=== PATIENT | male | born 1985 | race Hispanic/Latino ===

== ENCOUNTER 2023-09-02 14:46 | Emergency (ER) | payer SELFPAY ==
[2023-09-02 14:48] VITALS: BP 177/120
--- NOTE | 2023-09-02 16:47 | ED.GENMED ---
History of Present Illness
General
Chief Complaint: Abdominal Symptoms
Source: patient
Exam Limitations: none
Time Seen by Provider: 09/02/23 15:59
Nursing documentation reviewed up to this point in time: agreed with
History of Present Illness
History of Present Illness:
Patient to ED wt complaint of nausea and vomiting. States he began to feel nauseous last night, began vomiting this AM. Denies fever/chills. Generalized abdominal discomfort. No diarrhea. Brought to ED by friend for eval
Past History
Past History
ED Past Medical History: None
ED Past Surgical History: None
Social History
Tobacco: Non-smoker
Alcohol: Occasional
Drug: None
Review of Systems
Review of Systems
Allergies reviewed?: Yes
All Other Systems: ROS reviewed and negative except as documented in HPI and ROS
Constitutional: Reports no symptoms
EENT: Reports no symptoms
Respiratory: Reports no symptoms
Cardiac: Reports no symptoms
ABD/GI: Reports abdominal pain, nausea and vomiting
: Reports no symptoms
Musculoskeletal: Reports no symptoms
Skin: Reports no symptoms
Neurological: Reports no symptoms
Phy Exam
General Physical Exam
General Presentation: well appearing and mild distress
General age: appears stated age
General Skin: warm and dry
General Habitus: normal
General Mental: alert
Cardiovascular Exam
Cardiovascular Exam: regular rate/rhythm and no edema
Pulmonary Exam
Pulmonary Exam: lungs clear and no respiratory distress
Gastrointestinal Exam
Gastrointestinal Exam: normal bowel sounds, soft, no organomegaly, non distended and no cva tenderness
Palpation: generalized: Mild tenderness
Neurological Exam
Neurological Exam: alert, oriented x3, CN II-XII intact, no motor deficits, no sensory deficits, speech normal and normal gait
Musculoskeletal Exam
Musculoskeletal Exam: full ROM
Skin Exam
Skin Exam: normal color, warm/dry and no rash
Psychiatric Exam
Psychiatric Exam: normal mood/affect
Course
Orders/Labs/Results
Orders:
Orders
09/02/23 14:51
EKG [Electrocardiogram (*1)] Urgent
Reason for Study: Chest Pain
09/02/23 14:52
EKG- Treatment ONCE
09/02/23 16:09
Ondansetron Injectable [Zofran] 4 mg IV NOW STA
09/02/23 16:10
CT Abd/pelvis W Iv Cont Urgent
Comment:
Reason For Exam: generalized pain, vomiting.
0.9% Sodium Chloride 1000 ml [Nss] 1,000 ml IV BOLUS
09/02/23 16:48
Complete Blood Count/With Diff Urgent
Comprehensive Metabolic Panel Urgent
Lipase Urgent
09/02/23 18:06
HYDROmorphone [Dilaudid] 0.5 mg IV NOW STA
Ondansetron Injectable [Zofran] 4 mg IV NOW STA
09/02/23 18:19
CR Cervical Spine 2 or 3 Vw Urgent
Reason For Exam: fall
Abnormal Lab Results
09/02/23
16:48
RBC 3.97 L 10^6/uL
(4.70-6.10)
Hct 36.1 L %
(39.0-52.0)
MCH 33.2 H pg
(27.0-31.0)
Absolute Lymphs (auto) 1.1 L 10^3/uL
(1.2-3.4)
Neutrophils % 76.0 H %
(42.2-75.2)
Lymphocytes % 15.3 L %
(20.5-51.1)
BUN 5 L mg/dl
(9-20)
Creatinine 0.5 L mg/dL
(0.7-1.3)
Glucose 126 H mg/dl
(70-99)
Total Bilirubin 1.4 H mg/dl
(0.2-1.3)
AST 121 H U/L
(17-59)
ALT 67 H U/L
(0-50)
09/02/23 16:48
09/02/23 16:48
Vital Signs
Initial and Last Documented VS:
Initial Vital Signs
Temp Pulse Resp BP Pulse Ox
98 F 89 16 177/120 98
09/02/23 14:48 09/02/23 14:48 09/02/23 14:48 09/02/23 14:48 09/02/23 14:48
Last Documented Vital Signs
Temp Pulse Resp BP Pulse Ox
98 F 89 16 162/93 94
09/02/23 14:48 09/02/23 14:48 09/02/23 14:48 09/02/23 17:00 09/02/23 18:30
*Radiology
Radiology exam reviewed: radiology read reviewed
*Pulse Oximetry
Patient hypoxic: no
*Critical Care Note
Total Time (30-74mins, 75-104mins- exclusive of procedures): Not Applicable
Update Note
Update Note:
Labs, CT reviewd with patient. No findings to explain his symptoms. No further n/v in dept. He will be discharged home, close followup with PCP. Given instructions on s/s to return to ED and he is agreeable to plan.
ED Attending Note
-
Portions of this chart may have been created with voice recognition software.� Occasional wrong word or��sound alike� substitutions may have occurred due to the inherent limitations of voice recognition software.
Discharge Plan
Departure
Patient Disposition: Home (Routine Discharge)
Date of Disposition: 09/02/23
Time of Disposition: 19:29
Patient with high blood pressure during this ER visit?: No
Condition: Good
Covid-19: Not Applicable
Discharge Problem:
Nausea & vomiting
Instructions: Nausea and Vomiting, Adult (DC), Abdominal Pain
Prescriptions:
New
ondansetron 4 mg tablet,disintegrating
4 mg PO Q8H PRN (Reason: nausea and vomiting) 3 Days Qty: 12 0RF
Referrals:
UNKNOWN - PT DOES,NOT KNOW [Family Provider] -
Activity Restrictions/Additional Instructions:
Follow up with your family doctor.
Interventions
Interventions:
*Risk Screen - Suicide Last Done: 09/02/23 14:48
*General Assessment Last Done: 09/02/23 14:48
*Neglect/Abuse Screening Last Done: 09/02/23 14:48
*ED COVID-19 Vaccine History Last Done: 09/02/23 18:20
*Nursing Disposition Last Done: 09/02/23 19:54
MM-Dnwchc-Fakarkzgcm Assessment Last Done: 09/02/23 16:59
Discharge Date and Time
Discharge Date/Time: 09/02/23 19:55
Print Language: WALLISIAN
[2023-09-02] MEDS: NSS 1000 IV (16:49)
[2023-09-02] MEDS: ZOFRAN 4 MG IV ×2 (16:49→18:11)
[2023-09-02 16:50] VITALS: BP 171/101
[2023-09-02 16:58] LABS: % Basophils 0.7 % (0-2); % Immature Granulocytes 0.4 % (0-0.5); % Lymphocytes 15.3 % (20.5-51.1); % Monocytes 7.6 % (1.7-9.3); Absolute Basophils 0.1 10^3/uL (0-0.2); Absolute Lymphocytes 1.1 10^3/uL (1.2-3.4); Absolute Monocytes 0.6 10^3/uL (0.1-0.6); Absolute Neutrophils 5.6 10^3/uL (1.4-6.5); Hematocrit 36.1 % (39.0-52.0); Hemoglobin 13.2 g/dL (13.0-18.0); Mean Corp Hgb Conc. 36.6 g/dL (33.0-37.0); Mean Corpuscular Hgb 33.2 pg (27.0-31.0); Mean Corpuscular Volume 90.9 fL (80.0-94.0); Mean Platelet Volume 9.9 fL (7.4-10.4); Nucleated Red Blood Cells % 0 % (-); Platelet Count 220 10^3/uL (130-400); Red Blood Cell Count 3.97 10^6/uL (4.70-6.10); Red Cell Dist. Width 13.5 % (11.5-14.5); White Blood Cell Count 7.4 10^3/uL (4.8-10.8)
[2023-09-02 17:00] VITALS: BP 162/93
[2023-09-02 17:11] LABS: ALT (SGPT) 67 U/L (0-50); AST (SGOT) 121 U/L (17-59); Alkaline Phosphatase 82 U/L (38-126); Blood Urea Nitrogen 5 mg/dl (9-20); Calcium 9.7 mg/dl (8.4-10.2); Carbon Dioxide 28 mmol/L (22-30); Chloride 102 mmol/L (98-107); Glucose 126 mg/dl (70-99); Lipase 80 U/L (23-300); Potassium 3.6 mmol/L (3.5-5.1); Sodium 140 mmol/L (135-145); Total Bilirubin 1.4 mg/dl (0.2-1.3); Total Protein 8.1 g/dl (6.3-8.2); eGFR > 60.00
[2023-09-02] MEDS: DILAUDID 0.5 MG IV (18:11)
== END 2023-09-02 19:55 | disposition home or self-care (01) ==
LOC: EMR 14:46
PROVIDERS: Nurse Practitioner; EMERGENCY PHYSICIAN Emergency Medicine
DX: R11.2 Nausea with vomiting, unspecified (principal)
CPT/HCPCS: 99284; 96374; 96375; 96376; 96361; 72040; 74177; 80053; 83690; 85025; 93005; Q9967